=== PATIENT | female | born 1990 | race Caucasian/White ===

== ENCOUNTER 2017-01-19 02:51 | Emergency (ER) | payer SELFPAY ==
[~2017-01-19] VITALS: Ht 170.2 cm; Wt 54.4 kg
[2017-01-19 03:00] VITALS: BP 117/66
--- NOTE | 2017-01-19 03:01 | NUR ---
PT BIBRA, C/O "LOWER BACK PAIN RADIATING TO REBEKAH LE X2 HOURS" PT AOX4 RR EVEN AND UNLABORED. NO SOB NOTED. NAD NOTED. NO NVD AT THIS TIME. PT PLACED ON MONITOR WAITING FOR MD MUÑOZ. PT HX LUPUS. DR. FLORES AT BEDSIDE FOR EVAL.
[2017-01-19] MEDS ORDERED: DEXAMETHASONE SOD PHOSPHATE 10 MG/ML VIAL ONE (03:13)
[2017-01-19] MEDS ORDERED: HYDROCODONE/APAP 10/325MG 1 EA TABLET ONE (03:14)
[2017-01-19] MEDS ORDERED: CARISOPRODOL 350 MG TABLET ONE (03:14)
[2017-01-19] MEDS ORDERED: ONDANSETRON 4 MG TAB.RAPDIS ONE (03:15)
[2017-01-19] MEDS ORDERED: DEXAMETHASONE SOD PHOSPHATE 4 MG/ML VIAL IM ONE (03:30)
[2017-01-19] MEDS ORDERED: ONDANSETRON 4 MG TAB.RAPDIS SL ONE (03:30)
[2017-01-19] MEDS ORDERED: HYDROCODONE/APAP 10/325MG 1 EA TABLET PO ONE (03:30)
[2017-01-19] MEDS ORDERED: CARISOPRODOL 350 MG TABLET PO ONE (03:30)
[2017-01-19] MEDS ORDERED: MAG HYDROX/AL HYDROX/SIMETH 30 ML UDC PO ONE (04:30)
[2017-01-19] MEDS ORDERED: MAG HYDROX/AL HYDROX/SIMETH 30 ML UDC ONE (04:40)
== END 2017-01-19 04:56 | disposition home or self-care (01) ==
LOC: ER 02:54
DX: M54.41 Lumbago with sciatica, right side (principal); G40.909 Epilepsy, unspecified, not intractable, without status epilepticus; M32.9 Systemic lupus erythematosus, unspecified
CPT/HCPCS: A4606; J1100; Q0162; Z7610